=== PATIENT | male | born 1965 | race Hispanic/Latino ===

== ENCOUNTER 2021-11-09 14:29 | Inpatient (IN) | payer SELFPAY ==
[2021-11-09] MEDS ORDERED: SODIUM CHLORIDE 0.9% 1000 ML 1,000 ML IV ONE (14:32)
[2021-11-09] MEDS ORDERED: PHENYTOIN 1,000 MG in SODIUM CHLORIDE 0.9% 250ML 250 ML IV ONE (14:32)
[2021-11-09] MEDS ORDERED: METOPROLOL TARTRATE 5 MG/5 ML INJ IV ONE (15:53)
[2021-11-09 17:10] LABS: Basophils # (Auto) 0.1 K/mm3 (0.0-0.1); Basophils % (Auto) 0.6 % (0.0-1.8); Eosinophils % (Auto) 0.1 % (0.0-4.3); Hematocrit 34.9 % (35.5-45.6); Hemoglobin 11.5 gm/dl (11.8-15.2); Lymphocytes # (Auto) 0.6 K/mm3 (1.2-5.4); Lymphocytes % (Auto) 7.1 % (13.4-35.0); Mean Corpuscular HGB Conc 33 % (32-34); Mean Corpuscular Volume 96 fl (84-94); Monocytes # (Auto) 0.9 K/mm3 (0.0-0.8); Monocytes % (Auto) 9.8 % (0.0-7.3); Platelet Count 358 K/mm3 (140-440); Red Blood Count 3.63 M/mm3 (3.65-5.03); Red Cell Distribution Width 15.3 % (13.2-15.2)
[2021-11-09 17:34] LABS: Alanine Aminotransferase 21 units/L (7-56); Bilirubin,Direct 0.2 mg/dL (0-0.2); Blood Urea Nitrogen 7 mg/dL (9-20); Calcium 7.9 mg/dL (8.4-10.2); Hemolysis Index 5
[2021-11-09 17:46] LABS: BUN/Creatinine Ratio 10
[2021-11-09] MEDS ORDERED: POTASSIUM CHLORIDE ER 20 MEQ TAB PO ONE ×2 (18:00→21:00)
[2021-11-09] MEDS ORDERED: ASPIRIN 325 MG TAB PO ONE (18:53)
[2021-11-09] MEDS ORDERED: ACETAMINOPHEN 325 MG TAB PO PRN (20:12)
[2021-11-09] MEDS ORDERED: ONDANSETRON 4 MG/2 ML INJ IV PRN (20:12)
[2021-11-09] MEDS ORDERED: oxyCODONE /ACETAMINOPHEN 5-325MG TAB PO PRN (20:18)
[2021-11-09] MEDS: amLODIPine 5 MG TAB PO SCH (22:57)
[2021-11-09] MEDS: LOSARTAN 50 MG TAB PO SCH (22:58)
[2021-11-10] MEDS: HEPARIN 5,000 UNIT/1 ML VIAL SUB-Q SCH ×3 (00:09→21:56)
[2021-11-10] MEDS: carvediloL 12.5 MG TAB PO SCH ×3 (00:09→21:56)
[2021-11-10 03:06] LABS: Bacteria,Urine 1+ /HPF (Negative); Bilirubin,Urine NEG (Negative); Blood,Urine MOD (Negative); Color,Urine Yellow (Yellow); Protein,Urine <15 mg/dL mg/dL (Negative)
[2021-11-10 03:12] LABS: Amphetamine Screen,Urine PRESUMPTIVE NEGATIVE; Benzodiazepines Screen,Urine PRESUMPTIVE NEGATIVE; Cannabinoid Screen,Urine PRESUMPTIVE NEGATIVE; Cocaine Screen,Urine PRESUMPTIVE NEGATIVE; Methadone Screen,Urine PRESUMPTIVE NEGATIVE; Opiate Screen,Urine PRESUMPTIVE NEGATIVE
[2021-11-10 05:58] LABS: Basophils # (Auto) 0.1 K/mm3 (0.0-0.1); Basophils % (Auto) 0.9 % (0.0-1.8); Eosinophils # (Auto) 0.1 K/mm3 (0.0-0.4); Eosinophils % (Auto) 0.7 % (0.0-4.3); Hematocrit 35.6 % (35.5-45.6); Hemoglobin 11.7 gm/dl (11.8-15.2); Lymphocytes # (Auto) 1.1 K/mm3 (1.2-5.4); Lymphocytes % (Auto) 13.3 % (13.4-35.0); Mean Corpuscular HGB Conc 33 % (32-34); Mean Corpuscular Volume 99 fl (84-94); Monocytes # (Auto) 0.8 K/mm3 (0.0-0.8); Monocytes % (Auto) 10.2 % (0.0-7.3); Platelet Count 310 K/mm3 (140-440); Red Blood Count 3.58 M/mm3 (3.65-5.03); Red Cell Distribution Width 15.6 % (13.2-15.2)
[2021-11-10 06:19] LABS: Alanine Aminotransferase 20 units/L (7-56); Albumin 3.1 g/dL (3.9-5); BUN/Creatinine Ratio 8; Blood Urea Nitrogen 7 mg/dL (9-20); Calcium 8.2 mg/dL (8.4-10.2); Hemolysis Index 4
[2021-11-10 09:44] LABS: % Iron Saturation 79.26 %
[2021-11-10] MEDS ORDERED: HALOPERIDOL LACTATE 5 MG/1 ML INJ IV PRN (12:49)
[2021-11-10] MEDS ORDERED: LORazepam 2 MG/ML VIAL IV PRN (12:49)
[2021-11-10] MEDS: CALCIUM CARB/VIT D3/MINERALS 600 MG/800 UNITS TAB PO SCH ×2 (13:23→21:55)
[2021-11-10] MEDS: LOSARTAN 50 MG TAB PO SCH (13:24)
[2021-11-10 14:48] LABS: Creatine Kinase MB 1.4 ng/mL (0.0-4.0)
[2021-11-10] MEDS: ASPIRIN EC 81 MG TAB PO SCH (15:09)
[2021-11-10 17:43] LABS: INR 1.24 (0.87-1.13); Partial Thromboplastin Time 36.5 Sec. (24.2-36.6)
[2021-11-10] MEDS: amLODIPine 5 MG TAB PO SCH (22:01)
[2021-11-11] MEDS ORDERED: HEPARIN 10,000 UNITS/10 ML VIAL IV ONE (09:00)
[2021-11-11] MEDS ORDERED: HEPARIN 10,000 UNITS/10 ML VIAL IV PRN (09:00)
[2021-11-11 11:09] LABS: Hematocrit 35.8 % (35.5-45.6); Hemoglobin 11.8 gm/dl (11.8-15.2)
[2021-11-11 11:30] LABS: INR 1.13 (0.87-1.13)
[2021-11-11 11:31] LABS: Partial Thromboplastin Time 33.7 Sec. (24.2-36.6)
[2021-11-11] MEDS: LOSARTAN 50 MG TAB PO SCH (14:10)
[2021-11-11] MEDS: carvediloL 12.5 MG TAB PO SCH ×2 (14:50→23:22)
[2021-11-11] MEDS: CALCIUM CARB/VIT D3/MINERALS 600 MG/800 UNITS TAB PO SCH ×2 (14:53→23:21)
[2021-11-11] MEDS: ASPIRIN EC 81 MG TAB PO SCH (15:48)
[2021-11-11] MEDS: HEPARIN/ 0.45% NACL DRIP 25,000 UNIT/500 ML BAG IV SCH (18:29)
[2021-11-11] MEDS: amLODIPine 5 MG TAB PO SCH (23:21)
[2021-11-12 06:30] LABS: Basophils # (Auto) 0.1 K/mm3 (0.0-0.1); Basophils % (Auto) 0.8 % (0.0-1.8); Eosinophils # (Auto) 0.2 K/mm3 (0.0-0.4); Eosinophils % (Auto) 2.2 % (0.0-4.3); Hematocrit 33.7 % (35.5-45.6); Hemoglobin 11.3 gm/dl (11.8-15.2); Lymphocytes # (Auto) 1.4 K/mm3 (1.2-5.4); Lymphocytes % (Auto) 16.8 % (13.4-35.0); Mean Corpuscular HGB Conc 34 % (32-34); Mean Corpuscular Volume 98 fl (84-94); Monocytes # (Auto) 0.7 K/mm3 (0.0-0.8); Monocytes % (Auto) 8.5 % (0.0-7.3); Platelet Count 281 K/mm3 (140-440); Red Blood Count 3.44 M/mm3 (3.65-5.03); Red Cell Distribution Width 15.7 % (13.2-15.2)
[2021-11-12 06:39] LABS: Calcium 8.7 mg/dL (8.4-10.2)
[2021-11-12] MEDS: carvediloL 12.5 MG TAB PO SCH ×2 (09:31→22:03)
[2021-11-12] MEDS: LOSARTAN 50 MG TAB PO SCH (09:31)
[2021-11-12] MEDS: ASPIRIN EC 81 MG TAB PO SCH (09:31)
[2021-11-12] MEDS: CALCIUM CARB/VIT D3/MINERALS 600 MG/800 UNITS TAB PO SCH ×2 (09:31→22:03)
[2021-11-12] MEDS ORDERED: HEPARIN 10,000 UNITS/10 ML VIAL IV ONE (11:54)
[2021-11-12] MEDS: HEPARIN/ 0.45% NACL DRIP 25,000 UNIT/500 ML BAG IV SCH (15:12)
[2021-11-12] MEDS: amLODIPine 5 MG TAB PO SCH (22:03)
[2021-11-13 03:40] VITALS: BP 145/92
[2021-11-13 04:54] LABS: Hematocrit 31.5 % (35.5-45.6); Hemoglobin 10.6 gm/dl (11.8-15.2)
[2021-11-13 05:18] LABS: Calcium 8.7 mg/dL (8.4-10.2)
[2021-11-13] MEDS: HEPARIN/ 0.45% NACL DRIP 25,000 UNIT/500 ML BAG IV SCH (07:56)
[2021-11-13] MEDS: ASPIRIN EC 81 MG TAB PO SCH (11:40)
[2021-11-13] MEDS: LOSARTAN 50 MG TAB PO SCH (11:40)
[2021-11-13] MEDS: CALCIUM CARB/VIT D3/MINERALS 600 MG/800 UNITS TAB PO SCH (11:41)
[2021-11-13] MEDS: carvediloL 12.5 MG TAB PO SCH (11:41)
[2021-11-13 12:48] LABS: INR 1.11 (0.87-1.13)
[2021-11-13] MEDS ORDERED: WARFARIN 5 MG TAB PO SCH (15:00)
[2021-11-13] MEDS ORDERED: ENOXAPARIN 100 MG/1 ML INJ SUB-Q SCH (22:00)
== END 2021-11-13 16:50 | disposition home or self-care (01) | DRG 305 ==
LOC: ED 14:29 → 4A 20:13 → OBSVTOIN 11-11 15:05
PROVIDERS: ADMIT Internal Medicine; ATTEND Internal Medicine
DX: I16.1 Hypertensive emergency (principal); E87.1 Hypo-osmolality and hyponatremia; E44.1 Mild protein-calorie malnutrition; G40.909 Epilepsy, unspecified, not intractable, without status epilepticus; E87.6 Hypokalemia; E83.51 Hypocalcemia; E83.52 Hypercalcemia; I10 Essential (primary) hypertension; I48.91 Unspecified atrial fibrillation; Z95.1 Presence of aortocoronary bypass graft; R07.89 Other chest pain; I25.10 Atherosclerotic heart disease of native coronary artery without angina pectoris; Z82.3 Family history of stroke; Z83.3 Family history of diabetes mellitus; Z82.49 Family history of ischemic heart disease and other diseases of the circulatory system; E11.65 Type 2 diabetes mellitus with hyperglycemia; E11.51 Type 2 diabetes mellitus with diabetic peripheral angiopathy without gangrene; Z91.19 Patient's noncompliance with other medical treatment and regimen; Z68.32 Body mass index [BMI] 32.0-32.9, adult
CPT/HCPCS: 36415; 70450; 70551; 71045; 80048; 80053; 80076; 80307; 80320; 81001; 82140; 82550; 82553; 82607; 82747; 83036; 83550; 85014; 85018; 85025; 85049; 85520; 85610; 85730; 93005; 93010; 93306; G0378; J3490; J9280; Q0162; C8929; G0480; J1165; J1644; J7030; J7050